=== PATIENT | male | born 1990 | race Two or more races ===

== ENCOUNTER 2019-08-17 14:05 | Emergency (ER) | payer MEDICAID ==
[~2019-08-17] VITALS: Ht 177.8 cm; Wt 79.4 kg
--- NOTE | 2019-08-17 14:35 | NUR ---
ED Nurse Note: PATIENT WALKED INTO ED FROM HOME C/O RIGHT KNEE INJURY THAT HAPPENED AROUND 1100 TODAY WHILE HE WAS RIDING A SKATEBOARD. PATIENT IS ALERT AWAKE X4 ABLE TO BEAR WEIGHT ON THE LEFT LEG, BUT NOT ON THE RIGHT LEG. ICE PACK APPLIED TO THE RIGHT LEG.
[2019-08-17] MEDS ORDERED: HYDROcodone/Acetamin 5/325 tab PO ONE (14:45)
--- NOTE | 2019-08-17 14:56 | Emergency Room Report ---
History of Present Illness General Chief Complaint: Lower Extremity Injury Source: Patient Present Illness HPI The patient was skateboarding. At 11 am he performed a jump and caught his right his right foot and twisted his right knee. He has injured it before but never this severely. He is unable to walk on it because of pain. The pain is more medial. It swollen. He took 400 mg of Motrin approximately 2 hours ago. No numbness. No bleeding problems. No other injuries including head. Allergies: Coded Allergies: No Known Allergies (Unverified , 08/17/19) COVID-19 Screening Contact w/high risk pt: No Recent Travel to affected area: No Experienced COVID-19 symptoms?: No COVID-19 Testing performed [employer]: No Patient History Past Medical History: see triage record Social History: Reports: drug use - THC Social History Narrative Works in a dispensary Reviewed Nursing Documentation: PMH: Agreed; PSxH: Agreed Nursing Documentation-PMH Past Medical History: No Stated History Review of Systems Constitutional: Denies: fever ENT: Denies: throat pain Respiratory: Denies: cough, shortness of breath Cardiovascular: Denies: chest pain Gastrointestinal: Denies: abdominal pain Musculoskeletal: Reports: see HPI Skin: Denies: rash Neurological: Reports: see HPI Hematologic/Lymphatic: Reports: see HPI Physical Exam Vital Signs Date Time Temp Pulse Resp B/P (MAP) Pulse Ox O2 Delivery O2 Flow Rate FiO2 08/17/19 14:28 99.3 110 96 Room Air Sp02 EP Interpretation: reviewed, normal General Appearance: well appearing, no apparent distress, GCS 15 Head: normocephalic Eyes: bilateral eye normal inspection, bilateral eye PERRL, bilateral eye EOMI ENT: moist mucus membranes Neck: full range of motion, supple Respiratory: normal inspection, chest non-tender Cardiovascular #1: regular rate, rhythm Cardiovascular #2: 2+ radial (R), 2+ dorsalis pedis (R) Gastrointestinal: normal inspection, non tender Musculoskeletal: swelling - Right knee - effusion, decreased range of mation - R knee, medial tenderness though all ligaments intact, other - ankle and hip not tender with FROM Neurologic: alert, distal neuro normal, grossly normal Psychiatric: mood/affect normal Skin: normal color, no rash, other Medical Decision Making Diagnostic Impression: Primary Impression: Tibial plateau fracture, right Qualified Codes: S82.141A - Displaced bicondylar fracture of right tibia, initial encounter for closed fracture ER Course Patient presents with right knee injury. Based on his exam medial meniscus tears highly suspected. Other ligaments appear stable. X-rays indicated per Stebbins knee rules. In addition the patient is given [place] 1 dose. Ice applied by me. Xray reveals tibial plateau fracture (medially) and effusion (hemarthrosis). Knee immobilizer applied by tech. Position and tension excellent with improved pain. Distal neurovasc checked by me and normal. Discussed findings with patient with discussion of the need for surgery. Treatment plan discussed. Patient improved. Patient stable for outpatient observation and treatment. Other X-Ray Diagnostic Results Other X-Ray Diagnostic Results : X-Ray ordered: R knee # of Views/Limited Vs Complete: 3 View Indication: Other EP Interpretation: Yes Interpretation: no dislocation, other - effusion and tibial plateau fracture Impression: Other Electronically Signed by: Electronically signed by Jose Ladd MD Last Vital Signs Date Time Temp Pulse Resp B/P (MAP) Pulse Ox O2 Delivery O2 Flow Rate FiO2 08/17/19 16:01 99.4 96 Room Air 08/17/19 14:28 110 Status: improved Disposition: HOME, SELF-CARE Condition: Improved Scripts Ibuprofen* (MOTRIN*) 600 Mg Tablet 600 MG ORAL Q6HR, #20 TAB Prov: Jose Ladd MD 08/17/19 Hydrocodone Bit/Acetaminophen 5-325* (NORCO 5-325 TABLET*) 1 Each Tablet 1 TAB ORAL Q6H PRN for FOR PAIN, #10 TAB 0 Refills Prov: Jose Ladd MD 08/17/19 Jose Ladd MD Aug 17, 2019 14:56
--- NOTE | 2019-08-17 15:03 | NUR ---
ED Nurse Note: XRAY TAKEN AT BEDSIDE.
--- NOTE | 2019-08-17 15:05 | NUR ---
ED Nurse Note: PATIENT REPORTS HE WAS BROUGHT IN BY HIS COUSIN AND HE WILL GET A RIDE BACK HOME.
[2019-08-17] MEDS ORDERED: IBUPROFEN600 M1 ORAL (15:48)
[2019-08-17] MEDS ORDERED: NORCO 5-325 TA1 EAC1 ORAL (15:48)
--- NOTE | 2019-08-17 15:51 | Diagnostic Imaging Report ---
Indication: Posttraumatic pain Technique: 3 views of the right knee Comparison: None Findings: There is an unusual fracture of the medial tibial plateau. The fracture fragment appears slightly displaced. No definite shaft fracture demonstrated. There is evidence of a lipohemarthrosis. No fibular, femoral, or patellar fracture demonstrated Impression: Positive for unusual fracture limited to the surface of the medial tibial plateau. Associated lipohemarthrosis
--- NOTE | 2019-08-17 16:01 | NUR ---
ER DISCHARGE NOTE: Patient is cleared to be discharged per ERMD DR SANDERS, pt is aox4, on room air, with stable vital signs. pt was given dc and prescription instructions, pt was able to verbalize understanding, pt id band removed without complications. pt is able to ambulate with steady gait WITH CRUTCHES. pt took all belongings.
== END 2019-08-17 16:03 | disposition home or self-care (01) ==
LOC: EMR 15:00
DX: S82.141A Displaced bicondylar fracture of right tibia, initial encounter for closed fracture (principal); X50.1XXA Overexertion from prolonged static or awkward postures, initial encounter; Y92.9 Unspecified place or not applicable
CPT/HCPCS: 73562; Z7502; 99283